=== PATIENT | male | born 1940 | race Caucasian/White ===

== ENCOUNTER 2017-03-27 10:39 | Emergency (ER) | payer MEDICARE, OTHER ==
[~2017-03-27] VITALS: Ht 180.3 cm; Wt 88.2 kg
[~2017-03-27 10:39] MED LIST: ALEN70TA5 PO; AMLO5TAB2 PO; ASPI-496 PO; ATOR20TA9 PO; CALC1TAB84 PO; CHOL5000 PO; CYAN50008 PO; DULO30CA2 PO; GABA300C10 PO; LISI-167; LISI-167 PO; MULT-412 PO; TUMERIC PO
[2017-03-27 10:41] VITALS: BP 168/84
[2017-03-27] MEDS ORDERED: IBUPROFEN 200 MG TABLET PO ONE (11:00)
[2017-03-27] MEDS ORDERED: IBUPROFEN 200 MG TABLET ONE (11:02)
== END 2017-03-27 11:52 | disposition home or self-care (01) ==
LOC: ED 11:45
DX: M75.01 Adhesive capsulitis of right shoulder (principal); I10 Essential (primary) hypertension
CPT/HCPCS: 99284

== ENCOUNTER 2017-03-30 19:53 | Emergency (ER) | payer MEDICARE, OTHER ==
[~2017-03-30] VITALS: Ht 180.3 cm; Wt 88.0 kg
[2017-03-30] MEDS ORDERED: SODIUM CHLORIDE FLUSH 10ML SYR IVF ONE (20:30)
[2017-03-30 20:40] LABS: HEMATOCRIT 39.7 % (39.2-51.8); HEMOGLOBIN 13.3 g/dL (13.7-18.0); WHITE BLOOD COUNT 5.7 x10^3/uL (3.4-10)
[2017-03-30 21:04] LABS: ASPARTATE AMINO TRANSFERASE 32 U/L (15-37); BLOOD UREA NITROGEN 19 mg/dL (7-18)
[2017-03-30 23:42] VITALS: BP 119/59
== END 2017-03-30 23:44 | disposition home or self-care (01) ==
LOC: ED 21:39
DX: F10.120 Alcohol abuse with intoxication, uncomplicated (principal); Z04.3 Encounter for examination and observation following other accident; I10 Essential (primary) hypertension
CPT/HCPCS: 36415; 70450; 71010; 80053; 80307; 81003; 85025; 93005; 99285

== ENCOUNTER 2020-08-25 16:57 | Emergency (ER) | payer MEDICARE, OTHER ==
[~2020-08-25] VITALS: Ht 188 cm; Wt 88.0 kg
[~2020-08-25 16:57] MED LIST changes: -ALEN70TA5 PO; +ALEN70TA77 PO; +AMLO-150 PO; -AMLO5TAB2 PO; +ASPI-1026 PO; +ATOR20TA37 PO; -ATOR20TA9 PO; +ATOR40TA PO; +B12 IM; +CALC-649 PO; +CALC-694 PO; -CALC1TAB84 PO; +DONE10TA7 PO; +MEMA10TA PO; +VIT1CAPS11 PO
[2020-08-25] MEDS ORDERED: ONDANSETRON 2MG/ML, 2ML IVPush ONE (17:30)
[2020-08-25] MEDS ORDERED: ONDANSETRON 2MG/ML, 2ML ONE (17:39)
[2020-08-25] MEDS ORDERED: MORPHINE SULFATE 4 MG/ML, 1ML ONE ×2 (17:39→19:31)
--- NOTE | 2020-08-25 17:42 | NUR ---
PT OUT OF UNIT AT IMAGING
[2020-08-25] MEDS: MORPHINE SULFATE 4 MG/ML, 1ML IVPush PRN ×2 (17:58→19:34)
--- NOTE | 2020-08-25 18:15 | NUR ---
PT AND UNDERSTAND POC. PT DENIES NEEDS AT THIS TIME.
--- NOTE | 2020-08-25 18:40 | NUR ---
BREAK RN: PT TO CT VIA [facility].
[2020-08-25 20:21] VITALS: BP 109/37
== END 2020-08-25 20:22 | disposition home or self-care (01) ==
LOC: ED 18:22
DX: S42.292A Other displaced fracture of upper end of left humerus, initial encounter for closed fracture (principal); S09.90XA Unspecified injury of head, initial encounter; I10 Essential (primary) hypertension; Z86.73 Personal history of transient ischemic attack (TIA), and cerebral infarction without residual deficits; W00.0XXA Fall on same level due to ice and snow, initial encounter; Y93.89 Activity, other specified; Y92.009 Unspecified place in unspecified non-institutional (private) residence as the place of occurrence of the external cause; Y99.8 Other external cause status
CPT/HCPCS: 70450; 71045; 73060; 93005; 96374; 96375; 96376; 99284; J2270; J2405